=== PATIENT | female | born 1965 | race American Indian/Alaskan Native ===

== ENCOUNTER 2018-03-01 04:15 | Observation (INO) | payer OTHER ==
[2018-03-01 05:07] LABS: Basophils # (Auto) 0.1 K/mm3 (0.0-0.1); Basophils % (Auto) 2.7 % (0.0-1.8); Eosinophils # (Auto) 0.2 K/mm3 (0.0-0.4); Eosinophils % (Auto) 3.5 % (0.0-4.3); Hemoglobin 11.3 gm/dl (10.1-14.3); Lymphocytes # (Auto) 1.8 K/mm3 (1.2-5.4); Lymphocytes % (Auto) 35.6 % (13.4-35.0); Monocytes # (Auto) 0.5 K/mm3 (0.0-0.8); Monocytes % (Auto) 9.7 % (0.0-7.3)
[2018-03-01 05:16] LABS: Hematocrit 34.1 % (30.3-42.9); Mean Corpuscular HGB Conc 33 % (30-34); Mean Corpuscular Hemoglobin 26 pg (28-32); Mean Corpuscular Volume 77 fl (79-97); Platelet Count 380 K/mm3 (140-440); Red Blood Count 4.41 M/mm3 (3.65-5.03); Red Cell Distribution Width 21.9 % (13.2-15.2)
[2018-03-01 05:17] LABS: BUN/Creatinine Ratio 14; Blood Urea Nitrogen 11 mg/dL (7-17); Calcium 8.4 mg/dL (8.4-10.2); Hemolysis Index 22
[2018-03-01] MEDS ORDERED: MORPHINE IV ONE (05:42)
[2018-03-01] MEDS ORDERED: ZOFRAN IV ONE (05:42)
[2018-03-01] MEDS ORDERED: NITRO-BID 2% TP ONE (05:42)
--- NOTE | 2018-03-01 06:12 | XRay Report ---
FINAL REPORT EXAM: XR CHEST 1V AP HISTORY: chest pain TECHNIQUE: A portable upright view the chest was obtained. FINDINGS: Heart size and mediastinum appear normal. The lungs are clear. Pleural fluid is not seen. The bones and soft tissues reveal generalized obesity. IMPRESSION: No active chest disease.
--- NOTE | 2018-03-01 06:30 | Emergency Department Report ---
ED Chest Pain HPI - General Chief Complaint: Chest Pain Stated Complaint: CHEST PAIN Time Seen by Provider: 03/01/18 06:08 Source: patient Mode of arrival: Stretcher Limitations: No Limitations - History of Present Illness MD Complaint: chest pain -: Sudden, During the night Onset: during rest Pain Location: substernal, left chest Pain Radiation: LUE, neck, jaw/teeth Severity: severe Severity scale (0 -10): 8 Quality: tightness, sharp Consistency: constant Improves With: nitroglycerin, medication-other (Aspirin) Worsens With: nothing Context: other (Sleeping) re: nausea. denies: vomting, dyspnea Treatments Prior to Arrival: aspirin, nitroglycerin, oxygen - Related Data On Oral Contraceptives: No Home Medications Medication Instructions Recorded Confirmed Last Taken No Known Home Medications [No 03/01/18 03/01/18 Unknown Reported Home Medications] Allergies Allergy/AdvReac Type Severity Reaction Status Date / Time No Known Allergies Allergy Verified 11/03/14 03:36 Heart Score - HEART Score History: Moderately suspicious EKG: Non-specific Age: 45-65 Risk factors: 1-2 risk factors Troponin: 1-3x normal limit HEART Score: 5 - Critical Actions Critical Actions: 4-6 pts:12-16.6% risk of adverse cardiac event. Should be admitted ED Review of Systems ROS: Stated complaint: CHEST PAIN Other details as noted in HPI Comment: All other systems reviewed and negative Constitutional: denies: chills, fever Eyes: denies: vision change ENT: denies: ear pain Respiratory: denies: cough, shortness of breath Cardiovascular: chest pain. denies: edema Endocrine: no symptoms reported Gastrointestinal: nausea. denies: abdominal pain, vomiting, diarrhea Genitourinary: denies: urgency, frequency, hematuria Musculoskeletal: denies: back pain, joint swelling, arthralgia, myalgia Skin: denies: rash, change in color Neurological: denies: headache, numbness, paresthesias Psychiatric: denies: suicidal thoughts Hematological/Lymphatic: denies: easy bleeding, easy bruising ED Past Medical Hx - Past Medical History Previous Medical History?: No Additional medical history: ANXIETY - Surgical History Past Surgical History?: Yes Additional Surgical History: TUBAL LIGATION - Social History Smoking Status: Never Smoker - Medications Home Medications: Home Medications Medication Instructions Recorded Confirmed Last Taken Type No Known Home Medications [No 03/01/18 03/01/18 Unknown History Reported Home Medications] ED Physical Exam - General Limitations: No Limitations General appearance: alert, in no apparent distress - Head Head exam: Present: atraumatic, normocephalic, normal inspection - Eye Eye exam: Present: normal appearance, PERRL, EOMI - ENT ENT exam: Present: normal exam, normal orophraynx, mucous membranes moist - Neck Neck exam: Present: normal inspection, full ROM - Respiratory Respiratory exam: Present: normal lung sounds bilaterally - Cardiovascular Cardiovascular Exam: Present: regular rate, normal rhythm, normal heart sounds - GI/Abdominal GI/Abdominal exam: Present: soft, normal bowel sounds. Absent: tenderness, guarding - Extremities Exam Extremities exam: Present: normal inspection, full ROM, normal capillary refill - Back Exam Back exam: Present: normal inspection, full ROM - Neurological Exam Neurological exam: Present: alert, oriented X3, CN II-XII intact - Psychiatric Psychiatric exam: Present: normal affect - Skin Skin exam: Present: warm, dry, intact, normal color ED Course Vital Signs 03/01/18 03/01/18 03/01/18 04:26 04:30 04:45 Temperature 97.8 F Pulse Rate 78 62 71 Respiratory 18 12 13 Rate Blood Pressure 140/90 133/92 O2 Sat by Pulse 97 99 99 Oximetry 03/01/18 03/01/18 03/01/18 05:01 05:15 05:31 Temperature Pulse Rate 75 67 65 Respiratory 15 14 15 Rate Blood Pressure 133/92 133/92 132/76 O2 Sat by Pulse 100 97 99 Oximetry 03/01/18 03/01/18 03/01/18 05:45 06:09 06:15 Temperature Pulse Rate 72 64 Respiratory 12 19 Rate Blood Pressure 132/76 131/84 131/84 O2 Sat by Pulse 99 100 99 Oximetry 03/01/18 03/01/18 03/01/18 06:20 06:30 06:35 Temperature Pulse Rate 64 61 Respiratory 14 10 L 14 Rate Blood Pressure 131/84 146/86 O2 Sat by Pulse 100 100 Oximetry - Reevaluation(s) Reevaluation #1: 03/01/18 08:13 I discussed patient care with the hospitalist corrections lieutenant Dr Mancera. He was patient admitted to Dr. Buckley for further evaluation and management. JATINDER score - Jatinder Score Age > 65: (0) No Aspirin use within the Past 7 Days: (1) Yes 3 or more CAD Risk Factors: (0) No 2 or more Angina events in past 24 hrs: (0) No Known CAD with more than 50% Stenosis: (0) No Elevated Cardiac Markers: (0) No ST Deviation Greater than 0.5mm: (0) No JATINDER Score: 1 ED Medical Decision Making - Lab Data Result diagrams: 03/01/18 04:49 03/01/18 04:49 - EKG Data EKG shows normal: sinus rhythm Rate: normal (87) - EKG Data Interpretation: nonspecific ST-T wave chriss - Medical Decision Making ACS r/o M.I. Critical care attestation.: If time is entered above; I have spent that time in minutes in the direct care of this critically ill patient, excluding procedure time. ED Disposition Clinical Impression: Chest pain Qualifiers: Chest pain type: unspecified Qualified Code(s): R07.9 - Chest pain, unspecified Disposition: -09 OP ADMIT IP TO THIS HOSP Is pt being admited?: Yes Does the pt Need Aspirin: Yes Condition: Stable Instructions: Chest Pain (ED) Referrals: PRIMARY CARE, [Primary Care Provider] - 3-5 Days
[2018-03-01 07:46] LABS: INR 0.95 (0.87-1.13)
[2018-03-01 07:47] LABS: Partial Thromboplastin Time 27.4 Sec. (24.2-36.6)
[2018-03-01] MEDS ORDERED: NITROSTAT SL PRN (09:00)
[2018-03-01] MEDS ORDERED: DILAUDID IV PRN (09:02)
--- NOTE | 2018-03-01 09:14 | History and Physical Report ---
History of Present Illness Date of examination: 03/01/18 Date of admission: 03/01/18 Chief complaint: Lt sided chest pain since yesterday History of present illness: Very pleasant 52-year-old -[place] female patient with no significant past medical history not on any medications, presented to emergency room with intermittent chest pain left sided radiating to left side of the neck and jaw, grades between 5-6/10 Associated with mild nausea and no vomiting or diaphoresis, no aggravating or relieving factors Patient denies shortness of breath, however complains of some chest congestion and cough Never had similar symptoms in the past, but reports that she had a negative stress test many years ago when she had a physical. First set of cardiac enzymes negative, EKG nonspecific T-wave changes Past History Past Medical History: No medical history. denies: diabetes, hypertension Past Surgical History: Other (tube ligation) Social history: other (cocaine use[last time one week ago]). denies: smoking, alcohol abuse, prescription drug abuse Family history: CAD, diabetes, hypertension Medications and Allergies Allergies Allergy/AdvReac Type Severity Reaction Status Date / Time No Known Allergies Allergy Verified 11/03/14 03:36 Home Medications Medication Instructions Recorded Confirmed Last Taken Type Famotidine [Pepcid] 20 mg PO BID #30 tablet 03/01/18 Unknown Rx Active Meds: Active Medications Aspirin (Aspirin) 325 mg PO QDAY JOHNNY Carvedilol (Coreg) 3.125 mg PO BID JOHNNY Famotidine (Pepcid) 20 mg PO BID [facility] Hydromorphone HCl (Dilaudid) 1 mg IV Q4H PRN PRN Reason: Pain , Severe (7-10) Lisinopril (Zestril) 2.5 mg PO QDAY JOHNNY Nitroglycerin (Nitrostat) 0.4 mg SL .Q5MIN PRN PRN Reason: Chest Pain Review of Systems Constitutional: no weight loss, no weight gain, no fever, no chills Ears, nose, mouth and throat: nasal congestion, no nasal discharge Cardiovascular: chest pain, no orthopnea, no palpitations, no shortness of breath Respiratory: cough, other (congestion) Gastrointestinal: nausea, no abdominal pain, no vomiting Musculoskeletal: no myalgias, no arthritis Integumentary: no rash, no lesions Neurological: no weakness, no parathesias, no seizures Psychiatric: no anxiety, no depression Endocrine: no cold intolerance, no heat intolerance Hematologic/Lymphatic: no easy bruising, no easy bleeding Allergic/Immunologic: no urticaria, no allergic rhinitis Exam - Constitutional Vitals: Temp Pulse Resp BP Pulse Ox 97.8 F 57 L 12 126/78 98 03/01/18 04:26 03/01/18 08:15 03/01/18 08:15 03/01/18 08:15 03/01/18 08:15 General appearance: Present: no acute distress, well-nourished - EENT Eyes: Present: PERRL, EOM intact - Neck Neck: Present: supple, normal ROM - Respiratory Respiratory effort: normal Respiratory: bilateral: diminished, negative: rales, rhonchi, wheezing - Cardiovascular Rhythm: regular Heart Sounds: Present: S1 & S2 - Extremities Extremities: no ischemia, No edema - Abdominal General gastrointestinal: Present: soft, non-tender, non-distended, normal bowel sounds - Integumentary Integumentary: Present: clear, warm - Musculoskeletal Musculoskeletal: strength equal bilaterally - Psychiatric Psychiatric: appropriate mood/affect, cooperative - Neurologic Neurologic: CNII-XII intact, moves all extremities Results - Labs CBC & Chem 7: 03/01/18 04:49 03/01/18 04:49 Labs: Abnormal lab results 03/01/18 03/01/18 Range/Units 04:49 04:49 MCV 77 L (79-97) fl MCH 26 L (28-32) pg RDW 21.9 H (13.2-15.2) % Lymph % (Auto) 35.6 H (13.4-35.0) % Gibson % (Auto) 9.7 H (0.0-7.3) % Baso % (Auto) 2.7 H (0.0-1.8) % Glucose 102 H (65-100) mg/dL Assessment and Plan --Chest pain: Rule out acute coronary syndrome, cardiac enzymes Aspirin , no beta blockers in view of history of cocaine use ,LAUREL inhibitor, statins, nitrates,And morphine Echocardiogram, Lexiscan stress test to rule out reversible ischemia --Gastroesophageal reflux disease; Pepcid --Acute bronchitis/URI symptoms, Tylenol and antihistamines Cough medicine as needed --History of cocaine use; used 1 week ago, counseling done patient advised to quit recreational drug use Verbalized understanding, no beta blockers --DVT prophylaxis; Lovenox --On a stress test, if abnormal consult with cardiology If negative and patient is stable to be discharged
[2018-03-01] MEDS ORDERED: GUAIFENESIN DM SYRUP PO PRN (09:47)
[2018-03-01] MEDS ORDERED: COREG PO SCH (10:00)
[2018-03-01 10:18] LABS: Creatine Kinase MB 1.2 ng/mL (0.0-4.0)
[2018-03-01 10:20] LABS: Chol/HDL Ratio 2.45 %
[2018-03-01] MEDS ORDERED: ZESTRIL PO SCH (10:30)
[2018-03-01] MEDS ORDERED: PEPCID PO SCH (10:30)
[2018-03-01] MEDS ORDERED: ASPIRIN PO SCH (10:30)
[2018-03-01] MEDS ORDERED: LEXISCAN IV ONE (10:42)
[2018-03-01 13:04] LABS: Bacteria,Urine 1+ /HPF (Negative); Bilirubin,Urine NEG (Negative); Blood,Urine NEG (Negative); Color,Urine Straw (Yellow); Protein,Urine <15 mg/dL mg/dL (Negative); Urobilinogen,Urine < 2.0 mg/dL (<2.0)
[2018-03-01 13:06] LABS: Amphetamine Screen,Urine PRESUMPTIVE NEGATIVE; Benzodiazepines Screen,Urine PRESUMPTIVE NEGATIVE; Cannabinoid Screen,Urine PRESUMPTIVE NEGATIVE; Methadone Screen,Urine PRESUMPTIVE NEGATIVE; Opiate Screen,Urine PRESUMPTIVE NEGATIVE
[2018-03-01 13:25] LABS: Cocaine Screen,Urine PRESUMPTIVE POSITIVE
--- NOTE | 2018-03-01 16:24 | Discharge Summary ---
Providers - Providers Date of Admission: 03/01/18 08:32 Date of discharge: 03/01/18 Attending physician: MARTIN MAJANO MD Primary care physician: [employer] Hospitalization Reason for admission: chest pain since yesterday Condition: Stable Pertinent studies: Chest x-ray; no acute abnormality noted Lexiscan stress test; preliminary report given by Ms. Nohemi HAQUE cardiology, normal study Hospital course: A pleasant 52-year-old -[place] female patient was admitted through emergency room with atypical chest pain of one-day duration patient also has history of cocaine use , admitted to the hospital symptomatically managed Subsequently underwent Lexiscan stress test, which was negative for reversible ischemia and preserved left current function Patient was symptomatically managed, symptoms significantly improved Chest pain could be secondary to gastroesophageal reflux disease or costochondritis Patient advised to take [id number] pain medications and prescription for Pepcid was given to the patient Patient strongly counseled and advised to quit cocaine use, risks , complications and health related problems secondary to cocaine use was explained to the patient Patient verbalized understanding Today she is comfortable in bed no new complaints Vital signs stable [id number] evaluation and physical examination done by me prior to discharge is unremarkable Should she have recurrent chest pain advised to contact M.D. or go to ER. She may need outpatient cardiac workup as needed Patient is stable at the time of discharge Discharge diagnosis; Atypical chest pain; noncardiac, stress test negative Gastroesophageal reflux disease; probably the cause of chest pain, Pepcid 20 mg twice a day, History of cocaine use; counseling Possible costochondritis; [id number] pain medications as needed Disposition: DC-01 TO HOME OR SELFCARE Time spent for discharge: 31 min Core Measure Documentation - Palliative Care Palliative Care/ Comfort Measures: Not Applicable - Core Measures Any of the following diagnoses?: none Exam - Constitutional Vitals: Temp Pulse Resp BP Pulse Ox 97.8 F 60 8 L 122/74 98 03/01/18 04:26 03/01/18 12:18 03/01/18 10:00 03/01/18 12:18 03/01/18 15:09 General appearance: Present: no acute distress, well-nourished - EENT Eyes: Present: PERRL, EOM intact - Neck Neck: Present: supple, normal ROM - Respiratory Respiratory effort: normal Respiratory: negative: rales, rhonchi, wheezing - Cardiovascular Rhythm: regular Heart Sounds: Present: S1 & S2 - Extremities Extremities: no ischemia, No edema - Abdominal General gastrointestinal: Present: soft, non-tender, non-distended, normal bowel sounds - Integumentary Integumentary: Present: clear, warm - Musculoskeletal Musculoskeletal: strength equal bilaterally - Psychiatric Psychiatric: appropriate mood/affect, cooperative - Neurologic Neurologic: CNII-XII intact, moves all extremities Plan Activity: no restrictions Diet: regular Additional Instructions: Advised to quit cocaine use. If you have recurrent chest pain or shortness of breath, contact M.D. or go to emergency room. you may need to see corporate operations compliance manager for further evaluation as outpatient Follow up with: PRIMARY CARE, [Primary Care Provider] - 3-5 Days Prescriptions: Famotidine [Pepcid] 20 mg PO BID #30 tablet
[2018-03-01 17:36] VITALS: BP 129/87
--- NOTE | 2018-03-02 01:10 | Treadmill Report ---
NUCLEAR CARDIAC IMAGING INDICATION FOR PROCEDURE: Chest pain. Informed consent was obtained. DESCRIPTION OF PROCEDURE: Vasodilator stress was achieved with the intravenous administration of 0.4 mg of Lexiscan per protocol. Rest and stress nuclear cardiac imaging was performed with the intravenous administration of 10 and 28 mCi of technetium 99m Myoview respectively per protocol. Images were obtained in a 180-degree arc from 45 degrees HERNANDEZ to 45 degrees LPO. After data acquisition and reconstruction, the images were processed and reoriented into the vertical long, horizontal long, and horizontal short axis slices. A polar color map of the horizontal short axis slices were generated and reviewed. The rotating planar images reviewed in cinematic format on the computer console. Gated SPECT imaging demonstrates a post-stress left ventricular ejection fraction of 61% with normal wall motion. Myocardial perfusion imaging demonstrates no significant cavity change between stress and rest. At the apical and mid ventricular level, there is a small mild inferior wall perfusion abnormality that is predominantly persistent, but partially reversible. In the vertical long axis images, this defect in some of the slices appears to be more pronounced in the resting acquisition. Nuclear cardiac imaging demonstrates grossly normal post-stress left ventricular systolic function. Although a small degree of prior inferior wall myocardial necrosis with a residual degree of rodri-infarction ischemia cannot be definitely excluded, the imaging characteristics of this perfusion abnormality suggest that it may be artifactual in origin. A significant degree of ischemia is not seen. JOSE# [id number] JOAN/ENEIDA KELLER
== END 2018-03-01 17:30 | disposition home or self-care (01) ==
LOC: ED 04:15 → 4A 08:32
PROVIDERS: ADMIT Internal Medicine; ATTEND Internal Medicine
DX: R07.89 Other chest pain (principal); K21.9 Gastro-esophageal reflux disease without esophagitis; J20.9 Acute bronchitis, unspecified; F14.90 Cocaine use, unspecified, uncomplicated; Z83.3 Family history of diabetes mellitus; Z82.49 Family history of ischemic heart disease and other diseases of the circulatory system
CPT/HCPCS: 36415; 71045; 78452; 80048; 80061; 80307; 81001; 82550; 82553; 83880; 84484; 85025; 85610; 85730; 93005; 93010; 93017; 96374; 96375; 99285; A9502; G0378; J2270; J2405; J2785